=== PATIENT | male | born 1960 | race Caucasian/White ===

== ENCOUNTER 2017-07-10 08:41 | Emergency (ER) | payer SELFPAY ==
[2017-07-10 09:18] VITALS: BP 159/94
[2017-07-10] MEDS ORDERED: Lidocaine 2% PF * 5 ML VIAL INJ ONE (09:28)
--- NOTE | 2017-07-10 09:47 | UC ---
Skin Complaint HPI - HPI Summary HPI Summary: skin lesion x 1 year on the left side for his face has been getting larger over the past few days, been getting red, inflamed , painful with whitish discharge - History of Current Complaint Chief Complaint: UCSkin Time Seen by Provider: 07/10/17 09:14 Stated Complaint: SKIN COMPLAINT Hx Obtained From: Patient Onset/Duration: Gradual Onset, Lasting Weeks - 52, Still Present, Worse Since - past week Timing: Constant Onset Severity: Moderate Current Severity: Severe Pain Intensity: 5 Location: Face - left side Character: Swelling, Pain, Redness, Raised, Painful Aggravating Factor(s): Touch Alleviating Factor(s): Nothing Associated Signs & Symptoms: Positive: Tenderness - Allergy/Home Medications Allergies/Adverse Reactions: Allergies Allergy/AdvReac Type Severity Reaction Status Date / Time No Known Allergies Allergy Verified 07/10/17 09:11 Review of Systems Constitutional: Negative Eyes: Negative ENT: Negative Respiratory: Negative Cardiovascular: Negative Is Patient Immunocompromised?: No All Other Systems Reviewed And Are Negative: Yes PMH/Surg Hx/FS Hx/Imm Hx - Additional Past Medical History Additional PMH: chronic back pain - Surgical History Surgical History: None - Family History Known Family History: Negative: Diabetes - Social History Alcohol Use: Daily Alcohol Amount: 6 BEERS PER DAY Substance Use Type: None Smoking Status (MU): Heavy Every Day Tobacco Smoker Amount Used/How Often: 1 ppd Length of Time of Smoking/Using Tobacco: ~ 30 uears Household Exposure Type: Cigarettes Physical Exam Triage Information Reviewed: Yes Appearance: No Pain Distress, Thin Vital Signs: Initial Vital Signs Temp 98.0 F 07/10/17 09:12 Pulse 63 07/10/17 09:12 Resp 16 07/10/17 09:12 BP 159/94 07/10/17 09:12 Pulse Ox 100 07/10/17 09:12 Vital Signs Reviewed: Yes Eyes: Positive: Conjunctiva Clear ENT: Positive: Normal ENT inspection, Hearing grossly normal, Pharynx normal Neck: Positive: Supple, Nontender Respiratory: Positive: Chest non-tender, Lungs clear, Normal breath sounds Cardiovascular: Positive: RRR, No Murmur, Pulses Normal Skin: Positive: Other - skin lesion left side of face: ill cystic lesion left side of face , + swelling, erythema, tender to touch Course/Dx - Course Course Of Treatment: skin lesion , concern about skin cancer. referral to Derm. elevated BP : monitor your BP daily , follow up with your pcp [place] - Diagnoses Provider Diagnoses: skin lesion face. abscess face. elevated blood pressure Procedures - Incision and Drainage Site: cyst left side of face Anesthesia: Local, Lidocaine - 2% lidocaine x 2 cc Instrument(s): Scalpel - # 11 Discharge - Discharge Plan Condition: Stable Disposition: HOME Prescriptions: Cephalexin CAP* [Keflex CAP*] 500 mg PO TID #30 cap Patient Education Materials: Basal Cell Carcinoma (DC), Epidermal Inclusion Cysts (ED) Referrals: No Primary Care Phys,NOPCP [Primary Care Provider] - Davide MANCILLA,Ronald Marit [Medical Doctor] - As Soon As Possible Additional Instructions: concern about skin cancer please follow up with Derm for evaluation and tx
== END 2017-07-10 09:52 | disposition home or self-care (01) ==
LOC: UCCORT 08:41
DX: L98.9 Disorder of the skin and subcutaneous tissue, unspecified (principal); L02.01 Cutaneous abscess of face; R03.0 Elevated blood-pressure reading, without diagnosis of hypertension; M54.9 Dorsalgia, unspecified; G89.29 Other chronic pain
CPT/HCPCS: 10060; 99212; G0463